=== PATIENT | female | born 1985 | race Caucasian/White ===

== ENCOUNTER 2016-10-16 10:49 | Emergency (ER) ==
[2016-10-16 10:57] VITALS: BP 135/90
--- NOTE | 2016-10-16 11:12 | PROVIDER DOCUMENTATION ---
HPI-Psychological Disorder <AnthonySarahsonja Perdomo - Last Filed: 10/16/16 11:10> - General Source: patient - History of Present Illness-Psych Onset/Duration: reports: gradual, 3 days ago Timing: reports: still present, constant Severity: reports: moderate Situational problems related to:: reports: spouse Psychiatric Complaints: reports: depressed, insomnia. denies: hostile, suicidal ideation Substance Use: reports: none/never Previous psych related hospitalizations?: No Patient arrived by:: private car Similar Symptoms Previously?: No Recently seen or treated by another doctor?: No <Erik Cardona - Last Filed: 10/16/16 11:20> - General Chief Complaint: Anxiety Stated Complaint: SOB Time Seen by Provider: 10/16/16 11:03 Allergies/Adverse Reactions: Patient Allergies Allergy/AdvReac Type Severity Reaction Status Date / Time No Known Allergies Allergy Verified 04/23/16 11:38 - History of Present Illness-Psych Nature of Presenting Problem: patient is a 31 y/o F that presents with 3 days of depression, anxiety, and insomnia. patient is going through a divorce with . She denies si or hi thoughts, reports not working past few days but needing too. (Erik Cardona) Review of Systems - Adult - REVIEW OF SYSTEMS - ADULT Constitutional: denies: chills, fever Eyes: reports: no symptoms reported Ears, Nose, Mouth & Throat: reports: no symptoms reported Cardiovascular: denies: chest pain, palpitations, syncope Respiratory: denies: cough, shortness of breath, wheezing Gastrointestinal: denies: abdominal pain, diarrhea, nausea, vomiting Genitourinary: reports: no symptoms reported Musculoskeletal: reports: no symptoms reported Integumentary: reports: no symptoms reported Neurological: reports: no symptoms reported Psychiatric: reports: anxiety, depression Endocrine: reports: no symptoms reported Hematologic/Lymphatic: reports: no symptoms reported Allergic/Immunologic: reports: no symptoms reported All Other Systems: Reviewed and Negative <Erik Cardona - Last Filed: 10/16/16 11:20> Past History - Adult - PAST MEDICAL HISTORY-ADULT Major Childhood Illnesses: reports: denies history Cardiovascular: reports: denies history Gastrointestinal: reports: GERD, ulcer Obstetrical/Gynecological: reports: ovarian cysts Neurological: reports: other (add) - PRIOR SURGERIES/PROCEDURES Surgical/Procedure History: reports: BTL, - IMMUNIZATION STATUS Childhood Immunizations: UTD Flu Vaccine: See Nurse Assessment - FAMILY HISTORY Family History: reviewed, not pertinent <Sarah Cruz - Last Filed: 10/16/16 11:10> - PAST MEDICAL HISTORY-ADULT Review of Records: reports: Old Records Reviewed, Nursing Assessment Review, Medications Reviewed Psychiatric: reports: anxiety, other (add, adhd) - PRIOR SURGERIES/PROCEDURES Surgical/Procedure History: reports: BTL, - IMMUNIZATION STATUS Childhood Immunizations: See Nurse Assessment Flu Vaccine: See Nurse Assessment - FAMILY HISTORY Family History: reviewed, not pertinent - SOCIAL HISTORY Smoking: quit greater than 1 year, cigarettes <Erik Cardona - Last Filed: 10/16/16 11:20> Physical Exam-Psych Focus - Physical Exam-Psych Initial Vital Signs Reviewed: Yes Appearance: appropriate insight, neat, no memory impairment, alert, anxious Neurological: alert, oriented x 3, depressed affect Behavior/Eye Contact/Speech: cooperative, good eye contact, normal speech Thoughts/Hallucinations: normal thought pattern, no apparent hallucination HENMT: normocephalic/atraumatic, moist mucous membranes, normal ENT inspection Neck: full range of motion, normal inspection Respiratory: lungs clear, normal breath sounds, no respiratory distress, no accessory muscle use Cardiovascular: regular rate, rhythm, no edema, no murmur Abdominal Exam: normal bowel sounds, non tender, soft, no organomegaly, no pulsatile mass Back Exam: normal inspection, no vertebral tenderness Extremity: normal range of motion, normal inspection Integumentary: normal color, warm/dry <Erik Cardona - Last Filed: 10/16/16 11:20> Progress <Sarah Cruz - Last Filed: 10/16/16 11:10> <Erik Cardona - Last Filed: 10/16/16 11:20> - PLAN OF CARE/RESULTS Progress/Plan/Lab Results: Vital Signs Temp Pulse Resp BP Pulse Ox 10/16/16 10:54 98 F 107 H 18 135/90 100 No Known Allergies Allergy (Verified 04/23/16 11:38) Buspirone [Buspar] 10 mg PO TID #60 tablet 10/16/16 Lorazepam [Ativan] 1 mg PO QHS #7 tablet 10/16/16 pt will be d/c home f/u with pcp, rx given, pt was clinically stable (Erik Cardona) Departure - Departure Time of Disposition Order: 11:10 Certified Medical Emergency: Emergent <Sarah Cruz - Last Filed: 10/16/16 11:10> <Erik Cardona - Last Filed: 10/16/16 11:20> - Departure DIAGNOSIS: Anxiety Disposition: HOME 01 Condition: Stable Additional Instructions: Follow up with mental health ED Follow Up Instructions: You have been treated by a care provider in the Emergency Department. These instructions are being provided to you so you can have an understanding of how to care for yourself upon discharge. Upon discharge from the Emergency Department, you are responsible for making arrangements for follow-up care by a physician of your choice. Take all prescribed medications as directed. Return to the Emergency Department immediately for any new or worsening symptoms. You may call the Physician Referral phone number at [phone] to obtain a list of Physicians who are taking new patients. Prescriptions: Lorazepam [Ativan] 1 mg PO QHS #7 tablet Buspirone [Buspar] 10 mg PO TID #60 tablet Referrals: None,PCP [Primary Care Provider] - Raymond Goldman MD [STAFF PHYSICIAN] - Attestation - Scribe Verification/Attestation Scribe:: Erik Cardona Acting as Scribe for:: Sarah Cruz Scribe documention review:: This chart was documented by a scribe and accurately reflects the service the provider performed and the decisions made by the provider. - Physician/ Mid-level Attestation Patient care was provided by Mid-level provider (X [employer]/PA):: Yes Mid-level provider:: Sarah Cruz Mid-level documentation review:: The Mid-level provider documentation, treatment plan and medical decision making was reviewed by the physician who agrees with all treatment and medical decision making by the MLP. <Erik Cardona - Last Filed: 10/16/16 11:20> Physician Attestation
== END 2016-10-16 11:19 | disposition home or self-care (01) ==
LOC: P.ED 10:49
DX: F41.9 Anxiety disorder, unspecified (principal); R06.02 Shortness of breath
CPT/HCPCS: 99282

== ENCOUNTER 2016-12-17 12:39 | Emergency (ER) ==
[2016-12-17 12:55] VITALS: BP 152/83
[2016-12-17 13:14] LABS: URINE CULTURE PL NEEDED? NO; URINE SOURCE CLEAN CATCH
[2016-12-17 13:26] LABS: BILIRUBIN URINE NEGATIVE (NEGATIVE); BLOOD URINE NEGATIVE (NEGATIVE); CLARITY CLEAR (CLEAR); COLOR YELLOW; GLUCOSE URINE NEGATIVE (NEGATIVE); LEUKOCYTES URINE NEGATIVE (NEGATIVE); NITRITE URINE NEGATIVE (NEGATIVE); PROTEIN URINE NEGATIVE (NEGATIVE); UROBILINOGEN URINE NORMAL
[2016-12-17 13:27] LABS: URINE EPITHELIAL CELLS >10 /HPF (<10); URINE WBC <10 /HPF (<10)
--- NOTE | 2016-12-17 14:27 | PROVIDER DOCUMENTATION ---
HPI-Abdominal Pain/GI Problem - General Source: patient - History of Present Illness-ABD Nature of Presenting Problems: Pt is 31 y/o F presents to the ED with L pelvic pain. Pt states pain has been present for months. Pt states has had scans and a colonoscopy. Pt denies F. Pt denies N/V/D. Abdominal Pain Onset Location: reports: LLQ Pain Radiation: reports: no radiation Quality of Pain: reports: aching Severity in ED: reports: mild Onset/Duration: reports: other (months) Timing: reports: still present Activities at Onset: reports: light activity Exposure to sick contacts?: No Modifying Factors: improves with: nothing Associated Symptoms: reports: denies symptoms Last BM: unsure Dark Stools Present?: reports: none noticed Rectal Bleeding: reports: none Rectal Pain: reports: none Emesis Description: reports: none Bruising or Bleeding Gums?: No Similar Symptoms Previously?: Yes Recently seen or treated by another doctor?: Yes <Jeaneth Bernard - Last Filed: 12/17/16 15:17> <Lyndsay Gary - Last Filed: 12/17/16 15:19> - General Chief Complaint: General Adult Stated Complaint: FLANK PAIN Time Seen by Provider: 12/17/16 14:06 Allergies/Adverse Reactions: Patient Allergies Allergy/AdvReac Type Severity Reaction Status Date / Time No Known Allergies Allergy Verified 04/23/16 11:38 Home Medications: Home Medication List Medication Instructions Recorded Confirmed Last Taken Type Buspirone [Buspar] 10 mg PO TID #60 tablet 10/16/16 Unknown Rx Lorazepam [Ativan] 1 mg PO QHS #7 tablet 10/16/16 Unknown Rx Review of Systems - Adult - REVIEW OF SYSTEMS - ADULT Constitutional: reports: no symptoms reported Eyes: reports: no symptoms reported Ears, Nose, Mouth & Throat: reports: no symptoms reported Cardiovascular: reports: no symptoms reported Respiratory: reports: no symptoms reported Gastrointestinal: reports: abdominal pain (LLQ). denies: diarrhea, nausea, vomiting Genitourinary: reports: no symptoms reported Musculoskeletal: reports: no symptoms reported Integumentary: reports: no symptoms reported Neurological: reports: no symptoms reported Psychiatric: reports: no symptoms reported Endocrine: reports: no symptoms reported Hematologic/Lymphatic: reports: no symptoms reported Allergic/Immunologic: reports: no symptoms reported All Other Systems: Reviewed and Negative <Jeaneth Bernard - Last Filed: 12/17/16 15:17> Past History - Adult - PAST MEDICAL HISTORY-ADULT Review of Records: reports: Nursing Assessment Review, Medications Reviewed, Social history reviewed & non-contributory. Major Childhood Illnesses: reports: denies history Cardiovascular: reports: denies history Respiratory: reports: denies history Gastrointestinal: reports: GERD, ulcer Obstetrical/Gynecological: reports: ovarian cysts Genitourinary: reports: denies history Musculoskeletal: reports: denies history Neurological: reports: other (add) Psychiatric: reports: anxiety, other (add, adhd) Endocrine/Immune: reports: denies history Other Conditions: reports: denies history - PRIOR SURGERIES/PROCEDURES Surgical/Procedure History: reports: BTL, - IMMUNIZATION STATUS Childhood Immunizations: See Nurse Assessment Flu Vaccine: See Nurse Assessment - FAMILY HISTORY Family History: reviewed, not pertinent - SOCIAL HISTORY Smoking: cigarettes, greater than 1 pack/day Provider spent 3-5 mins advising pt. on dangers of tobacco.: discussed smoking cessation Substance Use: denies Living Situation: family <Brett Bernardi - Last Filed: 12/17/16 15:17> Physical Exam-General - PHYSICAL EXAM-ADULT Initial Vital Signs Reviewed: Yes - CONSTITUTIONAL General Appearance: appears well, alert, no apparent distress - EYES Eyes: PERRL/EOMI, pink conjunctivae, fundi clear, no AV nicking - HEAD, EARS, NOSE, MOUTH & THROAT HENMT: normocephalic/atraumatic, moist mucous membranes, normal ENT inspection, TMs normal, pharynx normal - NECK Neck: non-tender, full range of motion, supple, normal inspection - RESPIRATORY Respiratory: chest non-tender, lungs clear, normal breath sounds, no pleuratic chest pain, no respiratory distress, no accessory muscle use - CARDIOVASCULAR Cardiovascular: normal peripheral pulses, regular rate, rhythm, no edema, no gallop, no JVD, no murmur - GASTROINTESTINAL (ABDOMEN) Abdominal Exam: normal bowel sounds, soft, no organomegaly, no pulsatile mass, tenderness (LLQ) - LYMPHATIC Lymphatic: no adenopathy - MUSCULOSKELETAL Back Exam: normal inspection, no CVA tenderness, no vertebral tenderness Extremity: normal range of motion, non-tender, normal gait, normal inspection, no pedal edema, no calf tenderness, normal capillary refill, pelvis stable - SKIN Integumentary: normal color, normal turgor, warm/dry, ecchymosis (R abdomen) - NEUROLOGIC Neurologic: grossly normal - PSYCHIATRIC Psych/Mental Status: normal mood/affect, oriented x 3 <Jeaneth Bernard - Last Filed: 12/17/16 15:17> Progress - ULTRASOUND (By Radiology) 1 US Study: Pelvic Impression: Abnormal (otherwise negative) US Results: small hemorrhagic follicle of L ovary, 7mm <Jeaneth Bernard - Last Filed: 12/17/16 15:17> - PLAN OF CARE/RESULTS Progress/Plan/Lab Results: Discussed results and plan of care with patient. Patient agrees with plan and verbalizes understanding. Vital Signs Temp Pulse Resp BP Pulse Ox 12/17/16 12:51 98 F 81 18 152/83 98 No Known Allergies Allergy (Verified 04/23/16 11:38) Buspirone [Buspar] 10 mg PO TID #60 tablet 10/16/16 Lorazepam [Ativan] 1 mg PO QHS #7 tablet 10/16/16 Laboratory 12/17/16 13:00 Urine Source CLEAN CATCH Urine Color YELLOW Urine Clarity CLEAR Urine pH 7.0 Ur Specific [place] 1.010 Urine Protein NEGATIVE Urine Ketones NEGATIVE Urine Blood NEGATIVE Urine Nitrite NEGATIVE Urine Bilirubin NEGATIVE Urine Urobilinogen NORMAL Urine Microscopic RBC Not Reportable Urine WBC NEGATIVE Urine Microscopic WBC <10 Ur Epithelial Cells >10 A Urine Glucose NEGATIVE Orders Category Date Time Status ED: Urine Bedside ORDERED Care 12/17/16 13:07 Active US PELVIC NON-QA LEAD COMPLETE [US] Stat Exams 12/17/16 14:[address] W/POSS RFLX CULT [URINALYSIS] Stat Lab 12/17/16 13:00 Completed Laboratory Tests 12/17/16 13:00 Urine Source CLEAN CATCH Urine Color YELLOW Urine Clarity CLEAR Urine pH 7.0 Ur Specific [place] 1.010 Urine Protein NEGATIVE Urine Ketones NEGATIVE Urine Blood NEGATIVE Urine Nitrite NEGATIVE Urine Bilirubin NEGATIVE Urine Urobilinogen NORMAL Urine Microscopic RBC Not Reportable Urine WBC NEGATIVE Urine Microscopic WBC <10 Ur Epithelial Cells >10 A Urine Glucose NEGATIVE <Lyndsay Gary - Last Filed: 12/17/16 15:19> Departure <Jeaneth Bernard - Last Filed: 12/17/16 15:17> - Departure Time of Disposition Order: 15:18 Certified Medical Emergency: Emergent <Lyndsay Gary - Last Filed: 12/17/16 15:19> - Departure DIAGNOSIS: Ovarian cyst Qualifiers: Laterality: left Qualified Code(s): N83.202 - Unspecified ovarian cyst, left side Disposition: HOME 01 Condition: Stable Additional Instructions: Follow up with primary care physician Follow up with [facility] physician Return to ED for any concerns or worsening of symptoms ED Follow Up Instructions: You have been treated by a care provider in the Emergency Department. These instructions are being provided to you so you can have an understanding of how to care for yourself upon discharge. Upon discharge from the Emergency Department, you are responsible for making arrangements for follow-up care by a physician of your choice. Take all prescribed medications as directed. Return to the Emergency Department immediately for any new or worsening symptoms. You may call the Physician Referral phone number at [phone] to obtain a list of Physicians who are taking new patients. Referrals: None,PCP [Primary Care Provider] - Misbah Scanlon MD [STAFF PHYSICIAN] - Attestation - Scribe Verification/Attestation Scribe:: Jeaneth Bernard Acting as Scribe for:: Lyndsay Gary Scribe documention review:: This chart was documented by a scribe and accurately reflects the service the provider performed and the decisions made by the provider. <Jeaneth Bernard - Last Filed: 12/17/16 15:17> - Physician/ COLT Attestation Patient care was provided by Advanced Practice Provider:: Yes Advanced Practice Provider:: Lyndsay Gary Advanced Practice Provider documentation review:: The Mid-level provider documentation, treatment plan and medical decision making was reviewed by the physician who agrees with all treatment and medical decision making by the MLP. <Lyndsay Gary - Last Filed: 12/17/16 15:19> Physician Attestation
--- NOTE | 2016-12-17 15:14 | Diag Imaging Result Document ---
PROCEDURE NAME: US PELVIC NON-DOG CONTROL OFFICER COMPLETE - 12/17/2016 ENDOVAGINAL PELVIC ULTRASOUND: COMPARISON: CT 11/29/2015 and 06/15/16. FINDINGS: There was a small echogenic cyst of the left ovary measuring about 7 mm. This is probably a hemorrhagic cyst. Otherwise, there are some normal-appearing follicles in each ovary. No pelvic free fluid. The right ovary measures 3.2 x 2 x 1.6 cm. The left ovary measures 2.8 x 1.9 x 1.6 cm. The uterus is normal. The uterus measures 8.8 x 4.7 x 4 cm. Endometrial stripe thickness is 9 mm. IMPRESSION: Small hemorrhagic follicle of the left ovary. Otherwise, no acute disease.
== END 2016-12-17 15:40 | disposition home or self-care (01) ==
LOC: P.ED 12:39
DX: N83.202 Unspecified ovarian cyst, left side (principal); R10.2 Pelvic and perineal pain; R10.32 Left lower quadrant pain; R10.9 Unspecified abdominal pain; R10.814 Left lower quadrant abdominal tenderness; S30.1XXA Contusion of abdominal wall, initial encounter; F17.210 Nicotine dependence, cigarettes, uncomplicated; Z71.6 Tobacco abuse counseling; Z87.42 Personal history of other diseases of the female genital tract
CPT/HCPCS: 76856; 81001

== ENCOUNTER 2016-12-18 13:05 | Emergency (ER) ==
[2016-12-18 13:14] VITALS: BP 154/83
--- NOTE | 2016-12-18 13:31 | PROVIDER DOCUMENTATION ---
HPI-Female /OB/Breast - General Chief Complaint: Female Stated Complaint: RECHECK CYST ON OVARIES Time Seen by Provider: 12/18/16 13:17 Source: reports: patient Allergies/Adverse Reactions: Patient Allergies Allergy/AdvReac Type Severity Reaction Status Date / Time No Known Allergies Allergy Verified 04/23/16 11:38 Home Medications: Home Medication List Medication Instructions Recorded Confirmed Last Taken Type Buspirone [Buspar] 10 mg PO TID #60 tablet 10/16/16 Unknown Rx Lorazepam [Ativan] 1 mg PO QHS #7 tablet 10/16/16 Unknown Rx Diclofenac Sodium 75 mg PO BID #30 tablet. 12/18/16 Unknown Rx - History of Present Illness-Female /OB Nature of Presenting Problem: 31 y/o F c/o LLQ pain x several years, states worse in last 2 days. Pt states that she was seen at [place] ED yesterday and given dx of ovarian cyst (which she has been diagnosed with before in the ED, based on her records), and states motrin is not helping her pain. States she is aware that she has had this dx in the past, but wants pain medication for it today. Denies any V/D/C. Reports that she was seen by health dept. this morning and given dx of PID and given Abx for it. Denies any new sxs, but states she wants pain medication. When asked why she didn't go to [facility] for this, she states she didn't have the money to see them. Review of Systems - Adult - REVIEW OF SYSTEMS - ADULT Constitutional: reports: no symptoms reported. denies: chills, fever Eyes: reports: no symptoms reported. denies: blurred vision, double vision Ears, Nose, Mouth & Throat: reports: no symptoms reported. denies: ear pain, nose pain Cardiovascular: reports: no symptoms reported. denies: chest pain, palpitations Respiratory: reports: no symptoms reported. denies: dyspnea on exertion, shortness of breath Gastrointestinal: reports: see HPI, abdominal pain. denies: constipation, diarrhea, vomiting Genitourinary: reports: no symptoms reported. denies: dysuria, frequency Musculoskeletal: reports: no symptoms reported. denies: joint pain, joint swelling Integumentary: reports: no symptoms reported. denies: nail changes, rash Neurological: reports: no symptoms reported. denies: numbness, paresthesia Psychiatric: reports: no symptoms reported Endocrine: reports: no symptoms reported. denies: cold intolerance, heat intolerance Hematologic/Lymphatic: reports: no symptoms reported. denies: easy bruising, prolonged bleeding Allergic/Immunologic: reports: no symptoms reported All Other Systems: Reviewed and Negative Past History - Adult - PAST MEDICAL HISTORY-ADULT Review of Records: reports: Nursing Assessment Review, Medications Reviewed Major Childhood Illnesses: reports: denies history Cardiovascular: reports: denies history Respiratory: reports: denies history Gastrointestinal: reports: GERD, ulcer Obstetrical/Gynecological: reports: ovarian cysts Genitourinary: reports: denies history Musculoskeletal: reports: denies history Neurological: reports: other (add) Psychiatric: reports: anxiety, other (add, adhd) Endocrine/Immune: reports: denies history Other Conditions: reports: denies history - PRIOR SURGERIES/PROCEDURES Surgical/Procedure History: reports: BTL, - IMMUNIZATION STATUS Childhood Immunizations: See Nurse Assessment Flu Vaccine: See Nurse Assessment - FAMILY HISTORY Family History: reviewed, not pertinent - SOCIAL HISTORY Smoking: cigarettes, greater than 1 pack/day Provider spent 3-5 mins advising pt. on dangers of tobacco.: Discussed manners to quit use, and f/u contacts for add'l counseling. Physical Exam-General - PHYSICAL EXAM-ADULT Initial Vital Signs Reviewed: Yes - CONSTITUTIONAL General Appearance: alert, mild distress - EYES Eyes: pink conjunctivae - HEAD, EARS, NOSE, MOUTH & THROAT HENMT: normocephalic/atraumatic - NECK Neck: normal inspection - RESPIRATORY Respiratory: lungs clear, normal breath sounds. negative: crackles, rales, rhonchi, stridor, wheezing - CARDIOVASCULAR Cardiovascular: regular rate, rhythm. negative: bradycardia, tachycardia - GASTROINTESTINAL (ABDOMEN) Abdominal Exam: normal bowel sounds, soft, tenderness (LLQ). negative: distended, guarding, rigid, rebound, McBurney's point tenderness, Pandya's sign - MUSCULOSKELETAL Back Exam: normal inspection, no CVA tenderness Extremity: normal gait - SKIN Integumentary: normal color, normal turgor, warm/dry - NEUROLOGIC Neurologic: negative: aphasia - PSYCHIATRIC Psych/Mental Status: normal mood/affect, normal thought content, normal thought process, oriented x 3 Progress - PLAN OF CARE/RESULTS Progress/Plan/Lab Results: Vital Signs Temp Pulse Resp BP Pulse Ox 12/18/16 13:12 97.9 F 87 16 154/83 100 No Known Allergies Allergy (Verified 12/18/16 13:32) Diclofenac Sodium 75 mg PO BID #30 tablet. 12/18/16 Reviewed US from day prior in [place] ED. Discussed ovarian cysts with pt and follicle formation; showed her what 7 mm looks like and gave her medication instructions for at home. Departure - Departure Time of Disposition Order: 13:27 DIAGNOSIS: Request for narcotic pain medication, PID (pelvic inflammatory disease) Ovarian cyst Qualifiers: Laterality: left Qualified Code(s): N83.202 - Unspecified ovarian cyst, left side Disposition: HOME 01 Certified Medical Emergency: Emergent Condition: Stable Additional Instructions: Take medications as directed. Follow up with [facility] for further management. ED Follow Up Instructions: You have been treated by a care provider in the Emergency Department. These instructions are being provided to you so you can have an understanding of how to care for yourself upon discharge. Upon discharge from the Emergency Department, you are responsible for making arrangements for follow-up care by a physician of your choice. Take all prescribed medications as directed. Return to the Emergency Department immediately for any new or worsening symptoms. You may call the Physician Referral phone number at [phone] to obtain a list of Physicians who are taking new patients. Prescriptions: Diclofenac Sodium 75 mg PO BID #30 tablet. Referrals: None,PCP [Primary Care Provider] - Misbah Andrade MD [STAFF PHYSICIAN] - Attestation - Physician/ COLT Attestation Patient care was provided by Advanced Practice Provider:: Yes Advanced Practice Provider:: Gail Bell Advanced Practice Provider documentation review:: The Mid-level provider documentation, treatment plan and medical decision making was reviewed by the physician who agrees with all treatment and medical decision making by the P.
== END 2016-12-18 13:42 | disposition home or self-care (01) ==
LOC: ED 13:05
DX: N73.9 Female pelvic inflammatory disease, unspecified (principal); N83.202 Unspecified ovarian cyst, left side; R10.32 Left lower quadrant pain; R10.814 Left lower quadrant abdominal tenderness; F17.210 Nicotine dependence, cigarettes, uncomplicated; Z71.6 Tobacco abuse counseling; Z87.42 Personal history of other diseases of the female genital tract